=== PATIENT | male | born 1960 ===

== ENCOUNTER 2016-10-30 14:12 | Emergency (ER) | payer OTHER ==
[2016-10-30 14:19] VITALS: BP 123/71
--- NOTE | 2016-10-30 14:19 | UC ---
Respiratory Complaint HPI - HPI Summary HPI Summary: 55 year old male presents with complains of cough and chest congestion. - History of Current Complaint Chief Complaint: UCRespiratory Stated Complaint: RESP ISSUE Time Seen by Provider: 10/30/16 14:18 - Allergies/Home Medications Allergies/Adverse Reactions: Allergies Allergy/AdvReac Type Severity Reaction Status Date / Time No Known Allergies Allergy Verified 05/05/15 09:35 Home Medications: Home Medications Propranolol TAB* [Inderal TAB*] 10 mg PO BID PRN 10/30/16 [History Confirmed ] PMH/Surg Hx/FS Hx/Imm Hx - Surgical History Surgical History: Yes Surgery Procedure, Year, and Place: VASECTOMY-REVERSAL VASECTOMY-FATTY TUMORS REMOVED Review of Systems Constitutional: Negative Skin: Negative Eyes: Negative ENT: Negative Respiratory: Cough Cardiovascular: Negative Gastrointestinal: Negative Genitourinary: Negative Motor: Negative Neurovascular: Negative Musculoskeletal: Negative Neurological: Negative Psychological: Negative All Other Systems Reviewed And Are Negative: Yes Physical Exam Triage Information Reviewed: Yes Eye Exam: Normal ENT Exam: Normal Dental Exam: Normal Neck exam: Normal Neck: Positive: 1 Respiratory: Positive: Rhonchi, Wheezing Cardiovascular Exam: Normal Abdominal Exam: Normal Musculoskeletal Exam: Normal Neurological Exam: Normal Psychological Exam: Normal Skin Exam: Normal Respiratory Course/Dx - Differential Dx/Diagnosis Provider Diagnoses: cough. chest congestion Discharge - Discharge Plan Condition: Stable Disposition: HOME Prescriptions: Albuterol HFA INHALER* [Ventolin HFA Inhaler*] 1 puff INH Q6H PRN #1 mdi PRN Reason: Wheezing DOXYcycline CAP(*) [DOXYcycline 100MG CAP(*)] 100 mg PO BID #14 cap Methylprednisolone [Medrol Dosepak 4 MG*] 4 mg PO .SEE ESTHER INSTRUCTION #21 tab guaiFENesin/CODIEN 100MG-10MG* [Robitussin AC 100Mg-10Mg*] 5 ml PO Q6H PRN #120 udc MDD 20 ml PRN Reason: Cough Patient Education Materials: Acute Bronchitis (ED), Cold Symptoms (ED), Bronchospasm (ED), Acute Cough (ED), Wheezing (ED) Referrals: Savannah Daniels MD [Primary Care Provider] -
[2016-10-30] MEDS ORDERED: predniSONE TAB* 20 MG PO ONE (14:25)
[2016-10-30] MEDS ORDERED: Albuterol/Ipratropium NEB.SOL* Albuterol 2.5 MG/Ipratropium 0.5 MG 3 ML INH ONE (14:26)
--- NOTE | 2016-10-30 14:48 | RAD ---
INDICATION: Cough COMPARISON: Prior imaging unavailable at the time of this dictation TECHNIQUE: PA and lateral views of the chest were obtained. FINDINGS: The heart and mediastinum are normal in size and contour. The lungs are grossly clear. There is no evidence of large pleural effusion. Visualized bones are normal for the patient's age. There is no radiographic evidence of free air beneath the diaphragm IMPRESSION: No radiographic evidence of acute cardiopulmonary disease.
== END 2016-10-30 15:08 | disposition home or self-care (01) ==
LOC: UCEAST 14:12
DX: R05 Cough (principal); R09.89 Other specified symptoms and signs involving the circulatory and respiratory systems
CPT/HCPCS: 71020; 99212; A9270-GY; G0463; J7512